=== PATIENT | female | born 1975 | race Caucasian/White ===

== ENCOUNTER → 2017-11-16 | Outpatient (CLI) | payer OTHER | END | disposition home or self-care (01) | LOC: LAB SHORT 10:09 → PLD 10:09 | DX: L57.0 Actinic keratosis (principal) | CPT/HCPCS: 88305 ==

== ENCOUNTER → 2017-12-07 | Outpatient (CLI) | payer OTHER | END | disposition home or self-care (01) | LOC: LAB 09:53 → LAB SHORT 09:53 | DX: D48.5 Neoplasm of uncertain behavior of skin (principal) | CPT/HCPCS: 88304 ==

== ENCOUNTER 2019-03-01 07:51 | Day surgery (SDC) | payer OTHER ==
[~2019-03-01 07:51] MED LIST: BENADRYL25 MG PO; Dyazide 37.5-21 EACH PO
--- NOTE | 2019-03-01 09:00 | NUR ---
History, Chart, Medications and Allergies reviewed before start of procedure. Lungs clear T/O to Auscultation. Patient confirms NPO status and agrees with scheduled surgery. Pre-Op teaching done. Pt verbalizes understanding. Patient States Post-Procedure ride home has been arranged.
--- NOTE | 2019-03-01 12:36 | NUR ---
03/01/19 1236 Jere Hernández [address] DR[address] DOMÍNGUEZ IN THE ROOM. [employer] [place] [place] 1204 TVT PLACEMENT AND CYSTOSCOPY STARTED PER DR. DOMÍNGUEZ AFTER TIME OUT PERFORMED
--- NOTE | 2019-03-01 12:59 | NUR ---
ARRIVED RECIEVED REPORT CASTAÑEDA PATENT IV PATENT PATIENT MOANING SOFTLY ORDER TO GIVE DILAUDID NOW. GAVE 0.5MG AT THIS TIME.
--- NOTE | 2019-03-01 18:40 | NUR ---
summary patient ambulated in [place] with . reports some lower abd cramping pain but states is controlled with meds. small amount bloody vag draining to celi pad
[2019-03-02 04:49] LABS: BASOPHILS ABSOLUTE AUTO 0.03 K/mm3 (0.00-0.23); BASOPHILS PERCENT AUTO 0 % (0-2); EOSINOPHILS ABSOLUTE AUTO 0.01 K/mm3 (0.00-0.68); EOSINOPHILS PERCENT AUTO 0 % (0-6); Hematocrit 30.2 % (33.0-51.0); Hemoglobin 9.3 g/dL (11.5-16.0); IMMATURE GRAN ABSOLUTE AUTO 0.05 K/mm3 (0.00-0.10); IMMATURE GRAN PERCENT AUTO 0 % (0-1); LYMPHOCYTES ABSOLUTE AUTO 1.59 K/mm3 (0.84-5.20); LYMPHOCYTES PERCENT AUTO 12 % (21-46); MONOCYTES ABSOLUTE AUTO 0.86 K/mm3 (0.16-1.47); MONOCYTES PERCENT AUTO 7 % (4-13); Mean Corpuscular HGB 25.6 pg (26.0-34.0); Mean Corpuscular HGB Conc 30.8 g/dL (31.5-36.5); Mean Corpuscular Volume 83 fL (80-100); Mean Platelet Volume 11.4 fL (9.1-12.4); NEUTROPHILS ABSOLUTE AUTO 10.49 K/mm3 (1.96-9.15); NEUTROPHILS PERCENT AUTO 81 % (41-73); Platelet Count 293 K/mm3 (150-400); RDW Coefficient Variation 15.1 % (11.7-14.2); RDW Standard Deviation 45.6 fL (35.1-46.3); Red Blood Cell Count 3.63 M/mm3 (3.80-5.20); White Blood Cell Count 13.03 K/mm3 (4.00-11.30)
--- NOTE | 2019-03-02 06:36 | NUR ---
SHIFT SUMMARY PATIENT'S PAIN IS UNDER CONTROL WITH PRN MEDICATIONS. CASTA[place]EDA CATH TO GRAVITY, DISCONTINUED THIS AM. PATIENT HAS BEEN UP IN THE HALLWAY WITH AND UNDERWRITING ANALYST. DRESSING IS CLEAN AND DRY. NO VAGINAL BLEEDING.
[2019-03-02] MEDS ORDERED: DOCU100 PO (12:04)
[2019-03-02] MEDS ORDERED: Milk Of Ma400 MG/5 M PO (12:05)
[2019-03-02] MEDS ORDERED: Percocet 5-3251 EACH PO (12:08)
[2019-03-02] MEDS ORDERED: IBU800 MG PO (12:08)
[2019-03-02] MEDS ORDERED: SIME80CH PO (12:09)
[2019-03-02] MEDS ORDERED: PROM25 PO (12:10)
--- NOTE | 2019-03-02 12:49 | NUR ---
Discharge Summary PT ambulating well. 4 short walks this m orning. Pain managed on oral medication. Voiding well. Denies N/V. Tolerated breakfast and lumch. Walked out with to waiting vehicle. carried belomgimgs.
== END 2019-03-02 12:36 | disposition home or self-care (01) ==
LOC: ORSCMMR 07:51 → ORD 09:30 → ORSCMMR 14:25 → SURS 14:25 → ORSCMMR 03-02 12:36
PROVIDERS: Obstetrics & Gynecology
PROC: 0TSD0ZZ Reposition Urethra, Open Approach (ICD-10-PCS; principal; 2019-03-01 09:30)
PROC: 0UT9FZZ Resection of Uterus, Via Natural or Artificial Opening With Percutaneous Endoscopic Assistance (ICD-10-PCS; principal; 2019-03-01 09:30)
PROC: 0UT7FZZ Resection of Bilateral Fallopian Tubes, Via Natural or Artificial Opening With Percutaneous Endoscopic Assistance (ICD-10-PCS; principal; 2019-03-01 09:30)
PROC: 0U5F4ZZ Destruction of Cul-de-sac, Percutaneous Endoscopic Approach (ICD-10-PCS; principal; 2019-03-01 09:30)
DX: D25.9 Leiomyoma of uterus, unspecified (principal); N92.1 Excessive and frequent menstruation with irregular cycle; D50.9 Iron deficiency anemia, unspecified; N39.3 Stress incontinence (female) (male); I10 Essential (primary) hypertension; Z79.899 Other long term (current) drug therapy
CPT/HCPCS: 36415; 85025; 86850; 86900; 86901; 88307; C1771; J0690; J1100; J1170; J1885; J2250; J2405; J2704; J2710; J3010; J7120; Q0163

== ENCOUNTER → 2020-10-21 | Outpatient (CLI) | payer OTHER ==
[~2020-10-21] MED LIST changes: +DOCU100 PO; +IBU800 MG PO; +Milk Of Ma400 MG/5 M PO; +PROM25 PO; +Percocet 5-3251 EACH PO; +SIME80CH PO
== END | disposition home or self-care (01) ==
LOC: LAB SHORT 10:51
DX: L57.0 Actinic keratosis (principal)
CPT/HCPCS: 88305